=== PATIENT | female | born 1970 | race Caucasian/White ===

== ENCOUNTER 2017-09-25 06:48 | Emergency (ER) | payer BC ==
[~2017-09-25] VITALS: Ht 149.9 cm; Wt 72.6 kg
[2017-09-25] MEDS ORDERED: CLONIDINE0.1 PO (07:08)
[2017-09-25 07:13] LABS: URINE BILIRUBIN NEGATIVE (Negative); URINE BLOOD TRACE (Negative); URINE CLARITY CLEAR; URINE COLOR YELLOW; URINE GLUCOSE-RANDOM NEGATIVE (Negative); URINE KETONES NEGATIVE (Negative); URINE LEUKOCYTES-REFLEX NEGATIVE (Negative); URINE NITRITE-REFLEX NEGATIVE (Negative); URINE PROTEIN NEGATIVE (Negative); URINE SPECIFIC GRAVITY 1.025 (1.005-1.030); URINE UROBILINOGEN 0.2 E.U./dl (0.2-1.0)
[2017-09-25 07:33] LABS: HEMATOCRIT 41.7 % (37.0-47.0); HEMOGLOBIN 14.1 gm/dL (12.0-15.0); MCH 30.1 pg (26.0-34.0); MCHC 33.7 g/dL (28.0-37.0); MCV 89.3 fL (80.0-100.0); MPV 7.1 fl. (7.2-11.1); NUCLEATED RBCS 0 /100WBC; PLATELET COUNT* 217 thou/uL (150-400); RBC 4.67 mil/uL (4.20-5.00); RDW-CV 12.9 % (10.5-14.5)
[2017-09-25 07:37] LABS: ANION GAP 9 mmol/L (7-16); BUN 9 mg/dL (7-18); CALCIUM 8.5 mg/dL (8.5-10.1); CHLORIDE 106 mmol/L (98-107); CO2 26 mmol/L (21-32); CREATININE 0.8 mg/dL (0.6-1.3); GLUCOSE 162 mg/dL (70-99); POTASSIUM 3.9 mmol/L (3.5-5.1); SODIUM 141 mmol/L (136-145)
[2017-09-25 07:44] LABS: ALBUMIN 3.8 g/dL (3.4-5.0); ALKALINE PHOSPHATASE 81 U/L (46-116); LIPASE 114 U/L (73-393); SGOT 18 U/L (15-37); SGPT 21 U/L (30-65); TOTAL BILIRUBIN 0.2 mg/dL (<0.1-1.0); TOTAL PROTEIN 7.8 g/dL (6.4-8.2); TROPONIN-I LEVEL <0.06 ng/mL (<0.06)
[2017-09-25 08:02] LABS: ABSOLUTE LYMPHOCYTES 0.3 thou/uL (0.8-5.3); ABSOLUTE MONOCYTES 0.8 thou/uL (0.0-1.2); ABSOLUTE NEUTROPHILS 9.9 thou/uL (1.6-8.1); PLATELET ESTIMATE ADEQUATE
[2017-09-25] MEDS ORDERED: ZOFRAN ODT4 MG PO (08:53)
[2017-09-25] MEDS ORDERED: CIPRO500 MG PO (08:53)
[2017-09-25] MEDS ORDERED: NORCO 5-325 TA1 EACH PO (08:53)
[2017-09-25] MEDS ORDERED: FLAGYL500 MG PO (08:53)
[2017-09-25 09:16] VITALS: BP 116/59
--- NOTE | 2017-09-25 13:01 | EKG ---
[place] [address] ELECTROCARDIOGRAM REPORT Name: SAUNDRA AYALA Room: [facility]#: [id number] Admission: 09/25/17 Attend Phys: Discharge: 09/25/17 Date of : 66 Report #: [id number] THIS REPORT FOR: //name// [facility] ED Test Date: 2017-09-25 Test Time: 07:34:26 Pat Name: SAUNDRA AYALA Department: Room: Gender: F Video Engineer: MARCIA : 1970 Requested By: Tres Dennis Order Number: [id number] MD: Prosper Erazo Measurements Intervals [place] Rate: 86 P: 20 UT: 153 QRS: 87 QRSD: 109 T: 16 QT: 393 QTc: 470 Interpretive Statements Sinus rhythm Borderline low voltage, extremity leads No previous ECG available for comparison Electronically Signed On 09-25-2017 13:01:28 CDT by Prosper Erazo [email or web address] <ELECTRONICALLY SIGNED> By: Prosper Erazo MD, [facility] 09/25/17 1301 0734 0734 Prosper Erazo MD, FACC /EPI
== END 2017-09-25 09:16 | disposition home or self-care (01) ==
LOC: M.ERS 06:48
PROVIDERS: Emergency Medicine Emergency Medical Services
DX: K52.9 Noninfective gastroenteritis and colitis, unspecified (principal); I10 Essential (primary) hypertension